=== PATIENT | male | born 1970 | race Caucasian/White ===

== ENCOUNTER 2018-01-22 15:54 | Emergency (ER) | payer OTHER ==
[~2018-01-22] VITALS: Ht 180.3 cm; Wt 77.7 kg
[2018-01-22 15:59] VITALS: TEMP 36.6; Ht 180.3 cm; Wt 77.7 kg
[2018-01-22] MEDS ORDERED: LIDOCAINE 1% BUFFERED INJ 5 ML VIAL INFIL ONE ×2 (16:07→16:15)
[2018-01-22] MEDS ORDERED: DIPHTHERIA/TETANUS/PERTUSSIS 0.5 ML SYR/VIAL IM. ONE (16:15)
[2018-01-22] MEDS ORDERED: IBUP-1050 PO (16:56)
[2018-01-22 16:57] VITALS: BP 142/95; PULSE 84; O2SAT 100
[2018-01-22] MEDS ORDERED: MULT-513 PO (16:57)
--- NOTE | 2018-01-22 16:58 | EMERGENCY ROOM VISIT NOTE ---
ED Visit Note First contact with patient: 16:00 CHIEF COMPLAINT: Facial laceration HISTORY OF PRESENT ILLNESS: This 47-year-old male presents to ER with chief complaint of a laceration above his right eyebrow. The patient states that he was shooting a rifle and the scope recoiled and hit him just above his right eyebrow. The patient states it is not painful. The patient denies any visual changes. Patient denies any dizziness. Patient is unsure of his tetanus status. The patient is not on any blood thinners. REVIEW OF SYSTEMS: 6 system review was performed and was negative unless stated otherwise in history of present illness. PMH: The patient is healthy; hernia repair as a child SOCIAL HISTORY: Patient lives with his family in [place]. The patient is to tobacco use and occasional alcohol use. PHYSICAL EXAM: Vital Signs: Were reviewed reviewed Nurse's notes. general: 47- year-old white male appears in no acute distress. MENTAL Status: The patient is alert, oriented, and coherent. EYES: Pupils are round, equal, and react briskly to light. Space: There is a 4 cm laceration over the right eyebrow whose edges are gaping apart. There is no active bleeding and no foreign material in the wound. EMERGENCY DEPARTMENT COURSE: Patient was evaluated. Adacel was given. Wound Repair: Complexity: Complex Verbal consent was obtained after the risks and benefits were explained, including but not limited to bleeding, scarring, infection, pain, and bone/joint /nerve damage. The skin was prepped with betadine and a sterile field set. The wound was anesthetized with 3.0 ml of 1% buffered lidocaine. With direct pressure the bleeding subsided. Copious irrigation was performed using sterile saline. The wound was explored for foreign bodies and none found. Debridement was not performed. The deep tissue was approximated with 4 interrupted 6-0 Vicryl sutures. The wound edges were approximated using 6-0 Ethilon with 10 simple interrupted sutures. Hemostasis and excellent approximation was achieved. Antibacterial ointment and a sterile dressing applied. Detailed wound care instructions and signs and symptoms of infection reviewed with the patient. No complications and the patient tolerated the procedure well. DIAGNOSIS: 4 cm facial laceration DISCHARGE INSTRUCTIONS: Keep wound clean and dry. No water on the area for 12- 24 hrs then no soaking until sutures removed. Do not allow any crusting or dried blood to accumulate on sutures. If this occurs, use a 1:1 solution of hydrogen peroxide/water on a Q-tip to clean the wound. Use an antibiotic ointment for 3-4 days, then let wound dry. Suture removal in 6 days. Follow up sooner for any signs of infection (increasing redness, swelling, drainage). Ice and elevate for swelling and pain. Tylenol 650 mg every 6 hrs for pain. Keep covered when in sun until sutures removed then SPF 50 or higher for one year. Vitamin E oil if desired two weeks after suture removal for reduction of scar. If you would experience any visual changes or any feeling of pressure behind her eye, seek medical attention immediately. Patient condition was: stable. Please see Emergency Department Medical Record for additional patient information; this may include discharge diagnosis, interpretation of EKG, laboratory, and/or radiologic studies, Emergency Department course, etc. Vital Signs Date Time Temp Pulse Resp B/P (MAP) Pulse Ox O2 Delivery O2 Flow Rate FiO2 01/22/18 15:59 36.6 89 20 152/104 95 Room Air Medications Administered Medications (Trade) Dose Ordered Sig/No Route Start Time Stop Time Status Last Admin Dose Admin Diphtheria/ Pertussis/Tetanus Vacc (Adacel Inj) 0.5 ml ONCE ONCE IM. 01/22/18 16:15 01/22/18 16:16 DC 01/22/18 16:46 0.5 ML Lidocaine HCl (Buffered Lidocaine 1% Inj) 40 ml STK-MED ONCE INFIL 01/22/18 16:07 01/22/18 16:08 DC 01/22/18 16:07 40 ML Departure Information Patient Instructions [facility]
== END 2018-01-22 17:10 | disposition home or self-care (01) ==
LOC: C.EDB 15:56 → C.EDD 17:10
DX: S01.111A Laceration without foreign body of right eyelid and periocular area, initial encounter (principal); W22.8XXA Striking against or struck by other objects, initial encounter; Z23 Encounter for immunization